=== PATIENT | male | born 1960 | race Caucasian/White ===

== ENCOUNTER 2021-10-04 15:23 | Inpatient (IN) | payer BC ==
[~2021-10-04] VITALS: Ht 172.7 cm; Wt 68.0 kg
[2021-10-04] MEDS ORDERED: KETOROLAC TROMETHAMINE 30 MG/ML VIAL IV STA (15:30)
[2021-10-04] MEDS ORDERED: SODIUM CHLORIDE 0.9% 1000ML 1,000 ML IV STA (15:30)
[2021-10-04] MEDS ORDERED: FENTANYL CITRATE/PF 100MCG/2 ML INJ IV PRN (15:30)
[2021-10-04] MEDS ORDERED: ONDANSETRON HCL INJ 2MG/ML 2ML 2 MG/ML VIAL IV PRN ×2 (15:30→19:00)
[2021-10-04 16:12] LABS: BASOPHILS % 0.2 % (0.0-1.0); EOSINOPHILS % 0.2 % (0.0-6.0); HEMATOCRIT 42.7 % (34.2-44.1); LYMPHOCYTES # (AUTO) 0.8 (1.0-3.2); LYMPHOCYTES % 6.6 % (18.0-39.1); MEAN CORPUSCULAR HEMOGLOBIN 27.6 pg (28-32); MEAN CORPUSCULAR HGB CONC 32.8 g/dL (31-35); MEAN CORPUSCULAR VOLUME 84.2 fL (81-99); MONOCYTES # (AUTO) 1.1 (0.2-0.8); MONOCYTES % 9.5 % (4.4-11.3); NEUTROPHILS # (AUTO) 10.1 (2.1-6.9); NEUTROPHILS % 83.3 % (38.7-80.0); PLATELET COUNT 236 x10e3/uL (140-360); RED BLOOD COUNT 5.07 x10e6/uL (3.6-5.1); RED CELL DISTRIBUTION WIDTH 13.4 % (11.7-14.4)
[2021-10-04 16:19] LABS: CLARITY,URINE CLOUDY (CLEAR); COLOR,URINE YELLOW (YELLOW); KETONES,URINE NEGATIVE (NEGATIVE); LEUKOCYTE ESTERASE ,URINE NEGATIVE (NEGATIVE); NITRITE,URINE NEGATIVE (NEGATIVE); PROTEIN,URINE DIPSTICK TRACE (NEGATIVE)
[2021-10-04 16:20] LABS: URINE UROBILINOGEN 0.2 mg/dL (0.2 - 1)
[2021-10-04 16:31] LABS: ALBUMIN 4.2 g/dL (3.5-5.0); ALBUMIN/GLOBULIN RATIO 1.4 (0.8-2.0); AMORPHOUS SEDIMENT,URINE MODERATE (FEW); BACTERIA,URINE FEW /HPF; CALCIUM 9.4 mg/dL (8.4-10.2); CREATININE, SERUM 1.61 mg/dL (0.72-1.25); EPITHELIAL CELLS,URINE RARE /LPF; WBC,URINE (MAN) 0-5 /HPF (0-5)
[2021-10-04] MEDS ORDERED: IOPAMIDOL 370 MG/ML 200 ML INFUS..BTL INJ ONE (16:52)
[2021-10-04] MEDS ORDERED: SODIUM CHLORIDE 0.9% 50ML 50 ML ONE (16:52)
[2021-10-04] MEDS ORDERED: Morphine 4mg Syringe 4 MG/ML INJ IV PRN (19:00)
[2021-10-04 20:30] VITALS: BP 144/99
[2021-10-04 21:00] VITALS: BP 144/99
[2021-10-04] MEDS: SODIUM CHLORIDE 0.9% 1000ML 1,000 ML IV SCH (21:30)
[2021-10-05] VITALS (8 sets, daily range): BP systolic 134–154; BP diastolic 83–98
[2021-10-05] MEDS ORDERED: AMLODIPINE BESY10 MG PO (02:17)
[2021-10-05] MEDS ORDERED: TADALAFIL2.5 MG PO (02:17)
[2021-10-05] MEDS ORDERED: BUPROPION XL300 MG PO (02:17)
[2021-10-05] MEDS ORDERED: METOPROLOL SUC100 MG PO (02:17)
[2021-10-05] MEDS ORDERED: DEXTROAMP-AMPHE30 M1 PO (02:17)
[2021-10-05] MEDS ORDERED: BUPROPION XL150 MG (02:17)
[2021-10-05] MEDS ORDERED: DOXAZOSIN MESYLA2 MG PO (02:17)
[2021-10-05] MEDS: SODIUM CHLORIDE 0.9% 1000ML 1,000 ML IV SCH ×3 (04:30→21:15)
[2021-10-05 05:07] LABS: BASOPHILS % 0.4 % (0.0-1.0); EOSINOPHILS # (AUTO) 0.1 (0.0-0.4); EOSINOPHILS % 0.7 % (0.0-6.0); HEMATOCRIT 38.7 % (38.2-49.6); HEMOGLOBIN 12.8 g/dL (14.0-18.0); LYMPHOCYTES # (AUTO) 1.5 (1.0-3.2); LYMPHOCYTES % 15.5 % (18.0-39.1); MEAN CORPUSCULAR HEMOGLOBIN 27.9 pg (28-32); MEAN CORPUSCULAR HGB CONC 33.1 g/dL (31-35); MEAN CORPUSCULAR VOLUME 84.3 fL (81-99); MONOCYTES # (AUTO) 1.6 (0.2-0.8); MONOCYTES % 16.6 % (4.4-11.3); NEUTROPHILS # (AUTO) 6.4 (2.1-6.9); NEUTROPHILS % 66.6 % (38.7-80.0); PLATELET COUNT 188 x10e3/uL (140-360); RED BLOOD COUNT 4.59 x10e6/uL (4.3-5.7); RED CELL DISTRIBUTION WIDTH 13.5 % (11.7-14.4)
[2021-10-05 05:27] LABS: CALCIUM 8.1 mg/dL (8.4-10.2); CREATININE, SERUM 1.85 mg/dL (0.72-1.25)
[2021-10-05] MEDS ORDERED: PROPOFOL IV EMULSION 10 MG/ML 20 ML VIAL ONE (12:16)
[2021-10-05] MEDS ORDERED: DEXAMETHASONE SOD PHOS INJ 4 MG/ML SDV ONE (12:16)
[2021-10-05] MEDS ORDERED: ONDANSETRON HCL INJ 2MG/ML 2ML 2 MG/ML VIAL ONE (12:16)
[2021-10-05] MEDS ORDERED: LIDOCAINE HCL 2% LOCAL INJ 5 ML SDV VIAL INJ ONE (12:16)
[2021-10-05] MEDS ORDERED: POVIDONE IODINE 0.05% 0.05 % ML PO ONE (12:16)
[2021-10-05] MEDS ORDERED: MIDAZOLAM HCL 2 MG/2 ML VIAL ONE (12:22)
[2021-10-05] MEDS ORDERED: FENTANYL CITRATE/PF 100MCG/2 ML INJ ONE (12:22)
[2021-10-05] MEDS ORDERED: BELLADONNA/OPIUM 30 MG SUPP RC ONE (13:26)
[2021-10-05] MEDS ORDERED: IOPAMIDOL 300MG/ML 50ML INFUS..BTL IV ONE (13:26)
[2021-10-05] MEDS ORDERED: PHENAZOPYRIDINE HCL 100 MG TAB PO PRN (13:45)
[2021-10-05] MEDS ORDERED: B&O 60MG R/S 60 MG SUPP PR PRN (13:45)
[2021-10-05] MEDS ORDERED: CEFTRIAXONE 1 GM in SODIUM CHLORIDE 0.9% 50ML 50 ML IV SCH (16:00)
[2021-10-05] MEDS ORDERED: TADALAFIL PO SCH (20:00)
[2021-10-05] MEDS: ACETAMINOPHEN/CODEINE 300MG - 30MG TAB PO PRN (21:10)
[2021-10-06] VITALS: BP 143/95
[2021-10-06 04:00] VITALS: BP 169/98
[2021-10-06] MEDS ORDERED: CALCIUM CARBONATE 500 MG CHEWABLE TABS PO PRN (04:45)
[2021-10-06] MEDS: ACETAMINOPHEN/CODEINE 300MG - 30MG TAB PO PRN (05:00)
[2021-10-06] MEDS: SODIUM CHLORIDE 0.9% 1000ML 1,000 ML IV SCH ×2 (05:00→10:09)
[2021-10-06 05:49] LABS: BASOPHILS % 0.1 % (0.0-1.0); HEMATOCRIT 39.1 % (38.2-49.6); HEMOGLOBIN 13.3 g/dL (14.0-18.0); LYMPHOCYTES # (AUTO) 0.8 (1.0-3.2); LYMPHOCYTES % 7.4 % (18.0-39.1); MEAN CORPUSCULAR HEMOGLOBIN 28.2 pg (28-32); MEAN CORPUSCULAR VOLUME 82.8 fL (81-99); MONOCYTES # (AUTO) 0.7 (0.2-0.8); MONOCYTES % 6.8 % (4.4-11.3); NEUTROPHILS # (AUTO) 8.7 (2.1-6.9); NEUTROPHILS % 85.3 % (38.7-80.0); PLATELET COUNT 225 x10e3/uL (140-360); RED BLOOD COUNT 4.72 x10e6/uL (4.3-5.7); RED CELL DISTRIBUTION WIDTH 13.3 % (11.7-14.4)
[2021-10-06 06:03] LABS: ANION GAP 12.3 mmol/L (8-16); CALCIUM 8.4 mg/dL (8.4-10.2); CREATININE, SERUM 1.45 mg/dL (0.72-1.25); POTASSIUM 3.3 mmol/L (3.5-5.1)
[2021-10-06 07:35] VITALS: BP 155/89
[2021-10-06 08:08] VITALS: BP 155/89
[2021-10-06] MEDS ORDERED: AMLODIPINE BESYLATE 10 MG TAB PO SCH (09:00)
[2021-10-06] MEDS ORDERED: BUPROPION HCL PO SCH (09:00)
[2021-10-06] MEDS ORDERED: METOPROLOL SUCCINATE 50 MG TAB XL PO SCH (09:00)
[2021-10-06] MEDS ORDERED: BUPROPION HCL 150 MG TABCR PO SCH (09:00)
[2021-10-06] MEDS ORDERED: DOXAZOSIN MESYLATE 2 MG TAB PO SCH (09:00)
[2021-10-06] MEDS ORDERED: DITROPAN XL5 MG PO ×3 (09:14→09:16)
[2021-10-06] MEDS ORDERED: tylenol 3 PO (09:20)
[2021-10-06 11:53] VITALS: BP 144/101
[2021-10-06] MEDS ORDERED: ONDANSETRON HCL 4 MG ORAL DISINTEGRATING TAB PO PRN (12:30)
== END 2021-10-06 13:20 | disposition home or self-care (01) | DRG 661 ==
LOC: ER 15:30 → EDSEX 15:30 → ERHOLD 18:47 → MED/SURG 21:13
PROVIDERS: ADMIT Family Medicine; ATTEND Family Medicine
PROC: 0T768DZ Dilation of Right Ureter with Intraluminal Device, Via Natural or Artificial Opening Endoscopic (ICD-10-PCS; 2021-10-05)
PROC: 0T778ZZ Dilation of Left Ureter, Via Natural or Artificial Opening Endoscopic (ICD-10-PCS; 2021-10-05)
PROC: 0TC68ZZ Extirpation of Matter from Right Ureter, Via Natural or Artificial Opening Endoscopic (ICD-10-PCS; 2021-10-05)
PROC: BT141ZZ Fluoroscopy of Kidneys, Ureters and Bladder using Low Osmolar Contrast (ICD-10-PCS; principal; 2021-10-05 13:00)
DX: N13.2 Hydronephrosis with renal and ureteral calculous obstruction (principal); R31.29 Other microscopic hematuria; D64.9 Anemia, unspecified; E87.6 Hypokalemia; N17.9 Acute kidney failure, unspecified; Z86.73 Personal history of transient ischemic attack (TIA), and cerebral infarction without residual deficits; Z20.822 Contact with and (suspected) exposure to COVID-19; F32.A Depression, unspecified; N23 Unspecified renal colic; E83.51 Hypocalcemia
CPT/HCPCS: 36415; 74018; 74177; 74420; 80048; 80053; 81001; 83690; 83970; 84550; 85025; 96360; 99284; C1769; C2617; J0696; J1100; J1885; J2001; J2250; J2270; J2405; J3010; J7030; Q9967; U0002

== ENCOUNTER → 2021-11-18 | Day surgery (SDC) | payer BC ==
[2021-11-16 12:07] LABS: BASOPHILS # (AUTO) 0.1 (0.0-0.1); BASOPHILS % 0.7 % (0.0-1.0); EOSINOPHILS # (AUTO) 0.2 (0.0-0.4); EOSINOPHILS % 2.9 % (0.0-6.0); HEMATOCRIT 40.4 % (38.2-49.6); HEMOGLOBIN 13.3 g/dL (14.0-18.0); LYMPHOCYTES # (AUTO) 1.5 (1.0-3.2); LYMPHOCYTES % 21.6 % (18.0-39.1); MEAN CORPUSCULAR HEMOGLOBIN 27.7 pg (28-32); MEAN CORPUSCULAR HGB CONC 32.9 g/dL (31-35); MONOCYTES # (AUTO) 0.7 (0.2-0.8); MONOCYTES % 9.1 % (4.4-11.3); NEUTROPHILS # (AUTO) 4.7 (2.1-6.9); NEUTROPHILS % 65.6 % (38.7-80.0); PLATELET COUNT 220 x10e3/uL (140-360); RED BLOOD COUNT 4.81 x10e6/uL (4.3-5.7); RED CELL DISTRIBUTION WIDTH 13.2 % (11.7-14.4)
[2021-11-16 12:31] LABS: ANION GAP 13.4 mmol/L (8-16); CALCIUM 9.1 mg/dL (8.4-10.2); CREATININE, SERUM 1.28 mg/dL (0.72-1.25); POTASSIUM 3.4 mmol/L (3.5-5.1)
[~2021-11-18] MED LIST: AMLODIPINE BESY10 MG PO; BUPROPION XL150 MG; BUPROPION XL300 MG PO; CEFTRIAXONE 1 GM VIAL ONE; DEXAMETHASONE SOD PHOS INJ 4 MG/ML SDV ONE; DEXTROAMP-AMPHE30 M1 PO; DITROPAN XL5 MG PO; DOXAZOSIN MESYLA2 MG PO; FENTANYL CITRATE/PF 100MCG/2 ML INJ ONE; GLYCOPYRROLATE INJ 0.2 MG/ML VIAL ONE; LIDOCAINE HCL 2% LOCAL INJ 5 ML SDV VIAL INJ ONE; METOPROLOL SUC100 MG PO; METOPROLOL SUCCINATE 50 MG TAB XL ONE; MIDAZOLAM HCL 2 MG/2 ML VIAL ONE; ONDANSETRON HCL INJ 2MG/ML 2ML 2 MG/ML VIAL ONE; POVIDONE IODINE 0.05% 0.05 % ML PO ONE; PROPOFOL IV EMULSION 10 MG/ML 20 ML VIAL ONE; SEVOFLURANE INHAL SOLN 250 ML PEN BTL ONE; TADALAFIL2.5 MG PO; tylenol 3 PO
[2021-11-18 09:55] VITALS: BP 148/94
== END | disposition home or self-care (01) ==
LOC: OR 06:05
PROVIDERS: ATTEND Urology
DX: N20.1 Calculus of ureter (principal); Z96.0 Presence of urogenital implants; G47.33 Obstructive sleep apnea (adult) (pediatric); I10 Essential (primary) hypertension; K21.9 Gastro-esophageal reflux disease without esophagitis; I69.811 Memory deficit following other cerebrovascular disease; F32.A Depression, unspecified; F98.8 Other specified behavioral and emotional disorders with onset usually occurring in childhood and adolescence; Z01.810 Encounter for preprocedural cardiovascular examination; Z01.812 Encounter for preprocedural laboratory examination; Z01.818 Encounter for other preprocedural examination; Z11.52 Encounter for screening for COVID-19; Z79.899 Other long term (current) drug therapy
CPT/HCPCS: 36415; 50590; 74018; 80048; 84550; 85025; 93005; J0696; J1100; J2001; J2250; J2405; J2704; J3010; U0002

== ENCOUNTER → 2021-12-19 | Day surgery (SDC) | payer BC ==
[2021-12-16 12:15] LABS: BASOPHILS % 0.6 % (0.0-1.0); EOSINOPHILS # (AUTO) 0.2 (0.0-0.4); EOSINOPHILS % 2.4 % (0.0-6.0); HEMATOCRIT 40.1 % (38.2-49.6); HEMOGLOBIN 13.7 g/dL (14.0-18.0); LYMPHOCYTES # (AUTO) 1.7 (1.0-3.2); LYMPHOCYTES % 24.7 % (18.0-39.1); MEAN CORPUSCULAR HEMOGLOBIN 28.2 pg (28-32); MEAN CORPUSCULAR HGB CONC 34.2 g/dL (31-35); MEAN CORPUSCULAR VOLUME 82.5 fL (81-99); MONOCYTES # (AUTO) 0.9 (0.2-0.8); MONOCYTES % 13.2 % (4.4-11.3); PLATELET COUNT 227 x10e3/uL (140-360); RED BLOOD COUNT 4.86 x10e6/uL (4.3-5.7); RED CELL DISTRIBUTION WIDTH 13.2 % (11.7-14.4)
[2021-12-16 12:26] LABS: ANION GAP 10.3 mmol/L (8-16); CALCIUM 9.7 mg/dL (8.4-10.2); CREATININE, SERUM 1.48 mg/dL (0.72-1.25); POTASSIUM 3.3 mmol/L (3.5-5.1)
[~2021-12-19] MED LIST changes: +B&O 60MG R/S 60 MG SUPP PR ONE; -DEXAMETHASONE SOD PHOS INJ 4 MG/ML SDV ONE; +GENTAMICIN 80MG/NS 100 ML 100 ML IV ONE; -GLYCOPYRROLATE INJ 0.2 MG/ML VIAL ONE; +IOPAMIDOL 300MG/ML 50ML INFUS..BTL IV ONE; -LIDOCAINE HCL 2% LOCAL INJ 5 ML SDV VIAL INJ ONE; -METOPROLOL SUCCINATE 50 MG TAB XL ONE; -ONDANSETRON HCL INJ 2MG/ML 2ML 2 MG/ML VIAL ONE; -POVIDONE IODINE 0.05% 0.05 % ML PO ONE; -PROPOFOL IV EMULSION 10 MG/ML 20 ML VIAL ONE; -SEVOFLURANE INHAL SOLN 250 ML PEN BTL ONE; +SODIUM CHLORIDE 0.9% 50ML 50 ML ONE
[2021-12-19 14:30] VITALS: BP 165/85
== END | disposition home or self-care (01) ==
LOC: OR 08:07
PROVIDERS: ATTEND Urology
DX: N20.1 Calculus of ureter (principal); Z46.6 Encounter for fitting and adjustment of urinary device; N40.0 Benign prostatic hyperplasia without lower urinary tract symptoms; N28.89 Other specified disorders of kidney and ureter; I12.9 Hypertensive chronic kidney disease with stage 1 through stage 4 chronic kidney disease, or unspecified chronic kidney disease; N18.9 Chronic kidney disease, unspecified; I69.898 Other sequelae of other cerebrovascular disease; Z01.812 Encounter for preprocedural laboratory examination; Z01.818 Encounter for other preprocedural examination; Z20.822 Contact with and (suspected) exposure to COVID-19; Z79.899 Other long term (current) drug therapy
CPT/HCPCS: 36415; 52352; 74018; 74420; 80048; 84550; 85025; 88300; C1766; C1769; J0696; J1580; J2250; J3010; Q9967; U0002

== ENCOUNTER 2024-06-29 07:01 | Emergency (ER) | payer BC ==
[~2024-06-29] VITALS: Ht 172.7 cm; Wt 68.0 kg
[~2024-06-29 07:01] MED LIST changes: -B&O 60MG R/S 60 MG SUPP PR ONE; -CEFTRIAXONE 1 GM VIAL ONE; -FENTANYL CITRATE/PF 100MCG/2 ML INJ ONE; -GENTAMICIN 80MG/NS 100 ML 100 ML IV ONE; -IOPAMIDOL 300MG/ML 50ML INFUS..BTL IV ONE; -MIDAZOLAM HCL 2 MG/2 ML VIAL ONE; -SODIUM CHLORIDE 0.9% 50ML 50 ML ONE
[2024-06-29 07:05] VITALS: PULSE 69; RESP 18; TEMP 98.1
[2024-06-29] MEDS ORDERED: PHENYLEPHRINE HCL 1% 10 MG/ML VIAL ONE (07:48)
[2024-06-29 08:52] VITALS: BP 127/65; PULSE 71; RESP 18; TEMP 98.3; O2SAT 100
== END 2024-06-29 08:24 | disposition home or self-care (01) ==
LOC: FSED 07:26
DX: N48.33 Priapism, drug-induced (principal); I10 Essential (primary) hypertension; F32.A Depression, unspecified; Z86.73 Personal history of transient ischemic attack (TIA), and cerebral infarction without residual deficits
CPT/HCPCS: 99283; J2371